=== PATIENT | female | born 1995 | race Caucasian/White ===

== ENCOUNTER 2022-04-01 12:22 | Emergency (ER) | payer MEDICAID ==
[~2022-04-01] VITALS: Ht 162.6 cm; Wt 65.5 kg
[2022-04-01] MEDS ORDERED: LAMO100 PO (12:33)
[2022-04-01] MEDS ORDERED: LORA-999 PO (12:33)
[2022-04-01] MEDS ORDERED: LURA40TA2 PO (12:33)
[2022-04-01] MEDS ORDERED: ESCI20TA PO (12:33)
[2022-04-01] MEDS ORDERED: ALPR-705 PO (12:33)
[2022-04-01 13:17] LABS: BASOPHILS % (AUTO) 0.2 % (0.0-2.0); EOSINOPHILS % (AUTO) 0.5 % (1.0-6.0); HEMATOCRIT 38.7 % (36-46); LYMPHOCYTES # (AUTO) 1.2 K/uL (1.0-4.8); LYMPHOCYTES % (AUTO) 26.4 % (22.0-44.0); MEAN CORPUSCULAR HEMOGLOBIN 28.5 pg (26.0-34.0); MEAN CORPUSCULAR HGB CONC 33.5 G/dL (31.0-37.0); MEAN CORPUSCULAR VOLUME 85 fL (80-100); MONOCYTES # (AUTO) 0.3 K/uL (0.1-1.0); MONOCYTES % (AUTO) 6.5 % (2.0-9.0); NEUTROPHILS # (AUTO) 3.1 K/uL (1.8-7.7); NEUTROPHILS % (AUTO) 66.4 % (40.0-70.0); PLATELET COUNT (AUTO) 218 K/uL (150-450); RED BLOOD CELL COUNT(AUTO) 4.55 MIL/uL (4.00-5.20); RED CELL DISTRIBUTION WIDTH 12.7 % (11.5-14.5)
[2022-04-01 13:27] LABS: ANION GAP 9 mmol/L (8-16); CALCIUM, TOTAL 9.2 mg/dL (8.8-10.5); CARBON DIOXIDE 26 mmol/L (22-29); CHLORIDE 104 mmol/L (98-107); CREATININE 0.81 mg/dL (0.60-1.30); GLUCOSE,RANDOM 94 mg/dL (70-110); POTASSIUM 3.3 mmol/L (3.5-5.1); SODIUM SERUM 139 mmol/L (136-145); UREA NITROGEN, BLOOD 6 mg/dL (7-18)
[2022-04-01 13:29] LABS: GLOMERULAR FILTR. RATE CALC > 60 mL/min (>60)
[2022-04-01 13:40] LABS: ALANINE AMINOTRANSFERASE 13 U/L (12-78); ALBUMIN 4.1 g/dL (3.4-5.0); ALKALINE PHOSPHATASE 64 U/L (46-116); ASPARTATE AMINOTRANSFERASE 12 U/L (15-37); BILIRUBIN,TOTAL 0.6 mg/dL (0.1-1.0); HCG,QUANTITATIVE < 1 mIU/mL (0-6); LIPASE 358 U/L (73-393)
[2022-04-01 14:44] VITALS: BP 111/63
[2022-04-01] MEDS ORDERED: LAMO200T51 PO (15:35)
[2022-04-01] MEDS ORDERED: ONDA4TAB96 PO (15:35)
[2022-04-01] MEDS ORDERED: POTASSIUM CHLORIDE 20 MEQ ER TABLET PO ONE (16:00)
[2022-04-01] MEDS ORDERED: CAPSAICIN 0.025% 60 GM CREAM TP ONE (16:00)
== END 2022-04-01 16:26 | disposition home or self-care (01) ==
LOC: EMS 12:27
DX: R11.2 Nausea with vomiting, unspecified (principal); F41.9 Anxiety disorder, unspecified; F12.90 Cannabis use, unspecified, uncomplicated; R63.0 Anorexia; R19.7 Diarrhea, unspecified
CPT/HCPCS: 80053; 83690; 84702; 85025; 99283